=== PATIENT | male | born 1950 | race Two or more races ===

== ENCOUNTER → 2018-08-27 | Day surgery (SDC) | payer OTHER ==
[2018-08-24 12:45] LABS: Basophils # (auto) 0 uL; Basophils % (auto) 0.5 % (0.0-2.0); Eosinophils # (auto) 0.2 uL; Eosinophils % (auto) 2.6 % (0.0-7.0); Hematocrit 38.4 % (41.0-53.0); Hemoglobin 12.7 g/dL (13.5-17.5); Lymphocytes # (auto) 2.1 uL; Lymphocytes % (auto) 23.4 % (10.0-50.0); Mean Corpuscular Hemoglobin 29.8 pg (28.0-32.0); Mean Corpuscular Hgb Conc. 33.2 g/dL (32.0-36.0); Mean Corpuscular Volume 89.8 fL (80.0-100.0); Monocytes # (auto) 0.5 uL; Monocytes % (auto) 5.3 % (0.0-12.0); Neutrophils % (auto) 68.2 % (37.0-80.0); Nucleated Red Blood Cells % 0.1 %; Platelet Count (auto) 391 10^3/uL (140-450); Red Blood Cells 4.27 10^6/uL (4.5-5.90); Red Cell Distribution Width 13.3 % (11.8-14.3); White Blood Cell 8.8 10^3/uL (4.4-10.8)
[2018-08-24 12:50] LABS: Urine Bacteria NONE SEEN /hpf (None Seen); Urine Blood 2+ /uL (Negative); Urine Budding Yeast FEW /hpf (None Seen); Urine Specific Gravity 1.014 (1.001-1.035); Urine WBC 61 /hpf (0 - 3)
[2018-08-24 12:59] LABS: INR 0.95 (0.9-1.15); Partial Thromboplastin Time 31.3 sec (23.78-33.04); Prothrombin Time 10.2 sec (9.27-12.13)
[2018-08-24 14:07] LABS: Albumin 3.6 g/dL (3.4-5.0); Calcium 9.1 mg/dL (8.5-10.1); Potassium 4.7 mmol/L (3.5-5.1)
[2018-08-24 14:10] LABS: Bilirubin, Total 0.3 mg/dL (0.2-1.0); Total Protein 7.7 g/dL (6.4-8.2)
[~2018-08-27] VITALS: Ht 160 cm; Wt 75.7 kg
[~2018-08-27] MED LIST: BUPR100T14 PO; CIPROFLOXACIN 400MG/200ML 200 ML IV ONE; CITA10TA59 PO; FLUT100I IN; HYDROmorphone HCL 2 MG/ML VL IV PRN; IOHEXOL 300 MG/ML 100ML BOTTLE IJ ONE; METF-370 PO; METOCLOPRAMIDE HCL 5MG/ml INJ 2ml VIAL IV ONE; MIDAZOLAM HCL 1MG/1ML-2 ML VIAL ONE; OMEP20TA PO; ONDANSETRON HCL 4 MG/2 ML VIAL ONE; PROPOFOL 10 MG/ML 20 ML IV ONE; SIMV10TA84 PO; SODIUM CHLORIDE LOCK 10 ML ONE; TRAM-300 PO; TRAZ100T2 PO; fentaNYL CITRATE 100 MCG/2 ML VL ONE
[2018-08-27 14:22] VITALS: BP 131/83
== END | disposition home or self-care (01) ==
LOC: SUR 09:54
PROVIDERS: ATTEND Urology
DX: Z46.6 Encounter for fitting and adjustment of urinary device (principal); T83.192A Other mechanical complication of indwelling ureteral stent, initial encounter; F41.9 Anxiety disorder, unspecified; F32.9 Major depressive disorder, single episode, unspecified; J43.9 Emphysema, unspecified; E11.22 Type 2 diabetes mellitus with diabetic chronic kidney disease; N18.2 Chronic kidney disease, stage 2 (mild); Z80.8 Family history of malignant neoplasm of other organs or systems; Z83.3 Family history of diabetes mellitus; Z82.49 Family history of ischemic heart disease and other diseases of the circulatory system; Z90.5 Acquired absence of kidney
CPT/HCPCS: 36415; 52310; 72170; 76000; 80053; 81001; 82962; 85025; 85610; 85730; 87086; 87088; 87186; C1769; J0744; J2250; J2405; J2704; J3010; J7030; Q9967